=== PATIENT | female | born 1980 | race Caucasian/White ===

== ENCOUNTER 2017-03-22 15:18 | Emergency (ER) | payer OTHER ==
[2017-03-22 18:31] LABS: Hematocrit 40 % (35-47); Hemoglobin 13.8 g/dl (12.0-16.0); Mean Corpuscular HGB Conc 35 g/dl (31-36); Mean Corpuscular Hemoglobin 34 pg (27-31); Mean Corpuscular Volume 99 fL (80-97); Mean Platelet Volume 8 um3 (7.4-10.4); Red Blood Count 4.05 10^6/ul (4.0-5.4); Red Cell Distribution Width 13 % (10.5-15); White Blood Count 8.1 10^3/ul (3.5-10.8)
[2017-03-22 18:35] VITALS: BP 106/52
[2017-03-22 18:48] LABS: Albumin 3.8 g/dL (3.2-5.2); BUN/Creatinine Ratio 13.1 (8-20); Calcium 9.4 mg/dL (8.6-10.3); EGFR African American 141.9 (>60); EGFR Non-African American 110.4 (>60); Potassium 3.2 mmol/L (3.5-5.0); Total Bilirubin 0.6 mg/dL (0.2-1.0); Total Protein 6.8 g/dL (6.4-8.9)
--- NOTE | 2017-03-22 18:58 | RAD ---
INDICATION: 6 week gestation with low heart rate COMPARISON: None TECHNIQUE: Transvaginal scans were performed FINDINGS: There is an single intrauterine gestation with identification of a yolk sac and cardiac activity of 88 bpm similar to that reported previously. The crown-rump length corresponds to 6 week 2 day gestation. Both ovaries are visualized. There is a corpus luteal cyst on the right. The right ovary measures 3.9 x 2.4 x 2.2 cm and the left ovary 3.1 x 1.5 x 1.7 cm IMPRESSION: 6 WEEK 2 DAY GESTATION. THERE IS A LOW HEART RATE OF 88. SUGGEST CLINICAL MANAGEMENT AND RADIOGRAPHIC FOLLOW-UP INDICATED.
[2017-03-22 19:03] LABS: Urine Bilirubin Negative (Negative); Urine Glucose Negative (Negative); Urine Nitrite Negative (Negative)
--- NOTE | 2017-03-22 19:37 | ED ---
- HPI Summary HPI Summary: 37 female presents to ED with complaints of having a heart rate of ~ 89bpm. Patient states she was told from center to be evaluated in ED. She was just there for a routine visit after having positive at home test and missed period. No complaints at this time. No cramping, bleeding or discharge. Is not in any pain. States u/s and lmp suggest gestation is approximately 6 weeks. No other complaints at this time. No PMHx. No alcohol or drug use other than cigarette use. - History of Current Complaint Chief Complaint: EDOBProblems Stated Complaint: 6 WKS /OB PROBLEM Time Seen by Provider: 03/22/17 17:58 Hx Obtained From: Patient Chief Complaint: Concern for Demise Onset/Duration: Started Minutes Ago Current Severity: None Pain Intensity: 0 Location of Pain: None Character: None - Assessment Hx Now: Yes SAB: 0 IEA: 0 - Additional Pertinent History Maternal Blood Type and Rh: A Negative - Allergies/Home Medications Allergies/Adverse Reactions: Allergies Allergy/AdvReac Type Severity Reaction Status Date / Time Azithromycin Allergy Hives Verified 03/22/17 15:23 Latex Allergy See Comment Verified 03/22/17 15:23 Metronidazole [From MetroGel] Allergy Unknown Verified 03/22/17 15:23 Reaction Details Quinolones Allergy Hives Verified 03/22/17 15:23 PMH/Surg Hx/FS Hx/Imm Hx Endocrine/Hematology History: Reports: Hx Diabetes Denies: Hx Thyroid Disease Cardiovascular History: Denies: Hx Hypertension Respiratory History: Reports: Hx Asthma, Hx Chronic Obstructive Pulmonary Disease (COPD) - gustational dm GI History: Denies: Hx Ulcer Psychiatric History: Reports: Hx Anxiety, Hx Depression, Hx Substance Abuse - stopped using ~5 months ago - Surgical History Surgery Procedure, Year, and Place: n/a - Immunization History Immunizations Up to Date: Yes Infectious Disease History: Yes Infectious Disease History: Denies: Hx Hepatitis, Hx Human Immunodeficiency Virus (HIV), Traveled Outside the [place] in Last 30 Days - Family History Known Family History: Positive: Cardiac Disease, Diabetes - Social History Alcohol Use: None Substance Use Type: Reports: Other Substance Use Comment - Amount & Last Used: Opana, approx November 2015 Smoking Status (MU): Heavy Every Day Tobacco Smoker Type: Cigarettes Have You Smoked in the Last Year: Yes Review of Systems Constitutional: Negative Cardiovascular: Negative Respiratory: Negative Gastrointestinal: Negative Genitourinary: Negative All Other Systems Reviewed And Are Negative: Yes Physical Exam - Physical Exam Triage Information Reviewed: Yes Vital Signs On Initial Exam: temp: 98.7 HR:91 BP: 121/49 O2: 99 Resp:16 Appearance: Positive: Well-Appearing, No Pain Distress, Well-Nourished Skin: Positive: Warm, Skin Color Reflects Adequate Perfusion, Dry. Negative: Cold, Numb, Cyanosis @, Pale, Erythema @ Head/Face: Positive: Normal Head/Face Inspection Eyes: Positive: Conjunctiva Clear ENT: Positive: Normal ENT inspection, Hearing grossly normal, Pharynx normal Neck: Positive: Supple, Nontender Respiratory/Lung Sounds: Positive: Clear to Auscultation, Breath Sounds Present. Negative: Rales, Rhonchi Cardiovascular: Positive: Normal, RRR, Pulses are Symmetrical in both Upper and Lower Extremities. Negative: Murmur, Rub Abdomen Description: Positive: Nontender, No Organomegaly, Soft, Other: - genitalia normal per patient, asymptomatic deferred exam. Negative: Bruit, CVA Tenderness (R), CVA Tenderness (L), Distended, Guarding, McBurney's Point Tenderness, Peritoneal Signs Bowel Sounds: Positive: Present Musculoskeletal: Positive: Normal, Strength/ROM Intact. Negative: Pain @ Neurological: Positive: Normal, Sensory/Motor Intact, Alert, Oriented to Person Place, Time, NV Bundle Intact Distally, Normal Gait Psychiatric: Positive: Affect/Mood Appropriate Diagnostics - Vital Signs Vital Signs Temp Pulse Resp BP Pulse Ox 03/22/17 18:00 79 106/52 98 03/22/17 17:31 83 98 03/22/17 17:30 98.2 F 83 16 111/61 98 03/22/17 15:23 98.7 F 91 16 121/49 99 - Laboratory Lab Results: Lab Results 03/22/17 03/22/17 03/22/17 Range/Units 18:24 18:24 18:24 WBC 8.1 (3.5-10.8) 10^3/ul RBC 4.05 (4.0-5.4) 10^6/ul Hgb 13.8 (12.0-16.0) g/dl Hct 40 (35-47) % MCV 99 H (80-97) fL MCH 34 H (27-31) pg MCHC 35 (31-36) g/dl RDW 13 (10.5-15) % Plt Count 218 (150-450) 10^3/ul MPV 8 (7.4-10.4) um3 Neut % (Auto) 53.7 (38-83) % Lymph % (Auto) 35.2 (25-47) % [place] % (Auto) 7.7 (1-9) % Eos % (Auto) 2.2 (0-6) % Baso % (Auto) 1.2 (0-2) % Absolute Neuts (auto) 4.4 (1.5-7.7) 10^3/ul Absolute Lymphs (auto) 2.9 (1.0-4.8) 10^3/ul Absolute Monos (auto) 0.6 (0-0.8) 10^3/ul Absolute Eos (auto) 0.2 (0-0.6) 10^3/ul Absolute Basos (auto) 0.1 (0-0.2) 10^3/ul Absolute Nucleated RBC 0 10^3/ul Nucleated RBC % 0 Sodium 135 (133-145) mmol/L Potassium 3.2 L (3.5-5.0) mmol/L Chloride 105 (101-111) mmol/L Carbon Dioxide 25 (22-32) mmol/L Anion Gap 5 (2-11) mmol/L BUN 8 (6-24) mg/dL Creatinine 0.61 (0.51-0.95) mg/dL Est GFR ( Amer) 141.9 (>60) Est GFR (Non-Af Amer) 110.4 (>60) BUN/Creatinine Ratio 13.1 (8-20) Glucose 78 (70-100) mg/dL Lactic Acid 1.0 (0.5-2.0) mmol/L Calcium 9.4 (8.6-10.3) mg/dL Total Bilirubin 0.60 (0.2-1.0) mg/dL AST 45 H (13-39) U/L ALT 53 H (7-52) U/L Alkaline Phosphatase 127 H (34-104) U/L Total Protein 6.8 (6.4-8.9) g/dL Albumin 3.8 (3.2-5.2) g/dL Globulin 3.0 (2-4) g/dL Albumin/Globulin Ratio 1.3 (1-3) Beta HCG, Quant 38194.00 mIU/mL Urine Color Urine Appearance Urine pH (5-9) Ur Specific [place] (1.010-1.030) Urine Protein (Negative) Urine Ketones (Negative) Urine Blood (Negative) Urine Nitrate (Negative) Urine Bilirubin (Negative) Urine Urobilinogen (Negative) Ur Leukocyte Esterase (Negative) Urine Glucose (Negative) 03/22/17 Range/Units 18:40 WBC (3.5-10.8) 10^3/ul RBC (4.0-5.4) 10^6/ul Hgb (12.0-16.0) g/dl Hct (35-47) % MCV (80-97) fL MCH (27-31) pg MCHC (31-36) g/dl RDW (10.5-15) % Plt Count (150-450) 10^3/ul MPV (7.4-10.4) um3 Neut % (Auto) (38-83) % Lymph % (Auto) (25-47) % [place] % (Auto) (1-9) % Eos % (Auto) (0-6) % Baso % (Auto) (0-2) % Absolute Neuts (auto) (1.5-7.7) 10^3/ul Absolute Lymphs (auto) (1.0-4.8) 10^3/ul Absolute Monos (auto) (0-0.8) 10^3/ul Absolute Eos (auto) (0-0.6) 10^3/ul Absolute Basos (auto) (0-0.2) 10^3/ul Absolute Nucleated RBC 10^3/ul Nucleated RBC % Sodium (133-145) mmol/L Potassium (3.5-5.0) mmol/L Chloride (101-111) mmol/L Carbon Dioxide (22-32) mmol/L Anion Gap (2-11) mmol/L BUN (6-24) mg/dL Creatinine (0.51-0.95) mg/dL Est GFR ( Amer) (>60) Est GFR (Non-Af Amer) (>60) BUN/Creatinine Ratio (8-20) Glucose (70-100) mg/dL Lactic Acid (0.5-2.0) mmol/L Calcium (8.6-10.3) mg/dL Total Bilirubin (0.2-1.0) mg/dL AST (13-39) U/L ALT (7-52) U/L Alkaline Phosphatase (34-104) U/L Total Protein (6.4-8.9) g/dL Albumin (3.2-5.2) g/dL Globulin (2-4) g/dL Albumin/Globulin Ratio (1-3) Beta HCG, Quant mIU/mL Urine Color Yellow Urine Appearance Cloudy Urine pH 6.0 (5-9) Ur Specific [place] 1.016 (1.010-1.030) Urine Protein Negative (Negative) Urine Ketones Negative (Negative) Urine Blood Negative (Negative) Urine Nitrate Negative (Negative) Urine Bilirubin Negative (Negative) Urine Urobilinogen Positive H (Negative) Ur Leukocyte Esterase Negative (Negative) Urine Glucose Negative (Negative) Result Diagrams: 03/22/17 18:24 03/22/17 18:24 Lab Statement: Any lab studies that have been ordered have been reviewed, and results considered in the medical decision making process. - Ultrasound No standard instances Ultrasound Interpretation: Positive (See Comments) - 6 week 2 day gestation. there is a low heart rate of 88. suggest clinical management and radiographic follow up as indicated. Ultrasound Interpretation Completed By: Radiologist Course/Dx - Course Course Of Treatment: obtained another transvaginal US showing HR to be 88bpm. Labs/HCG obtained. Urine obtained and negative. no other complaints at this time. no symptoms of discharge, bleeding or abdominal pain/cramping. unable to prevent/treat at this time. However was suggested that miscarriage is possible. Unable and too early to tell. Follow up with OBGYN. Spoke with Dr Polanco at 7:30pm who agrees that follow up and repeat US/ HCG. Patient agrees and understands. Aware of worsening signs and symptoms to watch out for. Given vitamins and suggested to stop smoking. - Differential Diagnosis/HQI/PQRI: Incomplete , Missed , Spontaneous , Threatened , Early , UTI, Vaginal Bleeding - Diagnoses Provider Diagnoses: Abnormal heart rate - Provider Notifications Discussed Care Of Patient With: Dr Polanco Time Discussed With Above Provider: 19:30 Instructed by Provider To: Have Pt Call For Appt. Discharge - Discharge Plan Condition: Stable Disposition: HOME Prescriptions: RX: Vitamin [Calna] 1 tab PO DAILY #30 tab Patient Education Materials: (ED) Referrals: Hank JOHNSTON,Luciana Murrieta [Primary Care Provider] - Jason Polanco MD [Medical Doctor] - Additional Instructions: Please call and make an appointment to see OBGYN next week for repeat labs and U /S. If you have any new or worsening symptoms (vaginal bleeding/pain) please seek medical attention promptly.
== END 2017-03-22 19:43 | disposition home or self-care (01) ==
LOC: ED 15:18
DX: O76 Abnormality in fetal heart rate and rhythm complicating labor and delivery (principal); Z3A.01 Less than 8 weeks gestation of pregnancy; O24.911 Unspecified diabetes mellitus in pregnancy, first trimester; O99.331 Smoking (tobacco) complicating pregnancy, first trimester; F17.210 Nicotine dependence, cigarettes, uncomplicated
CPT/HCPCS: 36415; 76817; 80053; 81003; 83605; 84702; 85025; 86703; 99283

== ENCOUNTER 2017-06-20 14:40 | Emergency (ER) | payer OTHER ==
[2017-06-20 15:02] VITALS: BP 113/61
[2017-06-20] MEDS ORDERED: GuaiFENesin DM* 5 ML UDC PO ONE (15:22)
[2017-06-20] MEDS ORDERED: Acetaminophen TAB* 325 MG PO ONE (15:23)
[2017-06-20] MEDS ORDERED: guaiFENesin LIQ* 100 MG/5 ML UDC PO ONE (15:26)
--- NOTE | 2017-06-20 15:29 | UC ---
Respiratory Complaint HPI - HPI Summary HPI Summary: 37 year old female with history of hep C, PSA here with fever, chills and cough for over one month. Patient still smoking 1/2 PPD. Reports productive cough but denies cp or sob. No n/v/d. Patient also reports IVDU over her hands the past few days. No other complaints. - History of Current Complaint Chief Complaint: UCGeneralIllness Stated Complaint: URI Time Seen by Provider: 06/20/17 15:13 Hx Obtained From: Patient Hx Last Menstrual Period: this month Onset/Duration: Lasting Weeks Timing: Constant Aggravating Factors: Allergens Associated Signs And Symptoms: Positive: Fever, Chills - Allergies/Home Medications Allergies/Adverse Reactions: Allergies Allergy/AdvReac Type Severity Reaction Status Date / Time Azithromycin Allergy Hives Verified 06/20/17 15:03 Latex Allergy See Comment Verified 06/20/17 15:03 Metronidazole [From MetroGel] Allergy Unknown Verified 06/20/17 15:03 Reaction Details Quinolones Allergy Hives Verified 06/20/17 15:03 PMH/Surg Hx/FS Hx/Imm Hx - Surgical History Surgical History: None Surgery Procedure, Year, and Place: n/a - Family History Known Family History: Positive: Cardiac Disease, Diabetes - Social History Alcohol Use: None Substance Use Type: Other Substance Use Comment - Amount & Last Used: opiates Smoking Status (MU): Heavy Every Day Tobacco Smoker Type: Cigarettes Have You Smoked in the Last Year: Yes - Immunization History Most Recent Influenza Vaccination: 04/07/16 Most Recent Tetanus Shot: 03/11/16 Most Recent Pneumonia Vaccination: not indicated Review of Systems Constitutional: Fever, Chills Respiratory: Cough Genitourinary: Negative All Other Systems Reviewed And Are Negative: No Physical Exam Triage Information Reviewed: Yes Appearance: Other: - unkempt Vital Signs: Initial Vital Signs Temp 36.8 C 06/20/17 14:58 Pulse 105 06/20/17 14:58 Resp 21 06/20/17 14:58 BP 113/61 06/20/17 14:58 Pulse Ox 99 06/20/17 14:58 Vital Signs Reviewed: Yes ENT: Positive: Pharyngeal erythema, Nasal congestion Neck exam: Normal Neck: Positive: Supple, Nontender, No Lymphadenopathy Respiratory: Positive: Chest non-tender, Lungs clear, Normal breath sounds, No respiratory distress Abdomen Description: Positive: Nontender, No Organomegaly Musculoskeletal: Positive: Other: - bilateral arms and hands with track valencia No erythema no fluctuance Neurological: Positive: Alert UC Diagnostic Evaluation - Laboratory O2 Sat by Pulse Oximetry: 99 Respiratory Course/Dx - Course Course Of Treatment: Cough. Most likely bronchitis given history. CXR. Reassess - Differential Dx/Diagnosis Differential Diagnosis/HQI/PQRI: Lower Resp Infection, Sinusitis Provider Diagnoses: Patient's XR negative. Cough meds rx. Discharge - Discharge Plan Condition: Good Disposition: HOME Prescriptions: Benzonatate CAP* [Tessalon 100 MG CAP*] 100 mg PO TID PRN #15 cap PRN Reason: Cough Patient Education Materials: Cold Symptoms (ED) Referrals: No Primary Care Phys,NOPCP [Primary Care Provider] - Additional Instructions: Stop smoking and using IV drugs. This can worsen your symptoms. Follow up with your doctor and seek help for rehab.
--- NOTE | 2017-06-20 16:25 | RAD ---
INDICATION: Cough. COMPARISON: There are no prior studies available for comparison. TECHNIQUE: Dual-energy PA and lateral views of the chest were obtained. FINDINGS: The heart is within normal limits in size. Mediastinal and hilar contours appear within normal limits. The lungs are clear. No pleural effusion is present. There is a mild to moderate dorsal scoliosis convex toward the right side. IMPRESSION: NO EVIDENCE FOR ACTIVE CARDIOPULMONARY DISEASE.
== END 2017-06-20 16:50 | disposition home or self-care (01) ==
LOC: UCEAST 14:40
DX: R05 Cough (principal); Z32.02 Encounter for pregnancy test, result negative; Z88.1 Allergy status to other antibiotic agents; F17.210 Nicotine dependence, cigarettes, uncomplicated
CPT/HCPCS: 71020; 81003; 84702; 99212; A9270-GY; G0463

== ENCOUNTER 2018-05-01 18:27 | Emergency (ER) | payer OTHER ==
[2018-05-01 19:20] VITALS: BP 109/73
--- NOTE | 2018-05-01 20:09 | UC ---
Respiratory Complaint HPI - HPI Summary HPI Summary: 38-year-old female presents with 8 week history of persistent URIs symptoms and occasionally productive cough for yellow sputum. States she was prescribed a course of azithromycin and another antibiotic which she can't recall without any improvement in her symptoms. Associated with nasal congestion, postnasal drip, intermittent mild sore throat, and shortness of breath.. The patient is a smoker. She denies asthma however does have an albuterol inhaler that she occasionally uses for shortness of breath. States she is currently out of her inhaler and has not used. Denies fever, chills, chest pain, abdominal pain, nausea, or vomiting. - History of Current Complaint Chief Complaint: UCGeneralIllness Stated Complaint: COUGH,CONGESTION,ST Time Seen by Provider: 05/01/18 19:05 Hx Obtained From: Patient Hx Last Menstrual Period: unknown ?: No Onset/Duration: Lasting Weeks - 8 Pain Intensity: 3 Aggravating Factors: Deep Breaths Alleviating Factors: Nothing Associated Signs And Symptoms: Positive: Dyspnea, URI, Nasal Congestion, Hoarseness. Negative: Fever, Chills, Pleuritic Chest Pain, Wheezing, Hemoptysis , Sinus Discomfort - Allergies/Home Medications Allergies/Adverse Reactions: Allergies Allergy/AdvReac Type Severity Reaction Status Date / Time Latex, Natural Rubber Allergy Hives Verified 05/01/18 19:02 metronidazole Allergy Unknown Verified 05/01/18 19:02 Reaction Details Quinolones Allergy Anaphylatic Verified 05/01/18 19:02 Shock Home Medications: Home Medications Buprenorphine HCl/Naloxone HCl [Suboxone 12 mg-3 mg Sl Film] 1 tab SL BID [History Confirmed 05/01/18] PMH/Surg Hx/FS Hx/Imm Hx Other Psychological History: Substance abuse disorder - Surgical History Surgical History: Yes Surgery Procedure, Year, and Place: LEAP procedure - Family History Known Family History: Positive: Cardiac Disease, Diabetes - Social History Occupation: Unemployed Lives: With Family Alcohol Use: None Substance Use Type: Prescribed Substance Use Comment - Amount & Last Used: Suboxone Smoking Status (MU): Heavy Every Day Tobacco Smoker Type: Cigarettes Amount Used/How Often: 1ppd Have You Smoked in the Last Year: Yes Household Exposure Type: Cigarettes - Immunization History Most Recent Influenza Vaccination: 04/07/16 Most Recent Tetanus Shot: 9/2/16 Most Recent Pneumonia Vaccination: not indicated Review of Systems Constitutional: Negative Skin: Negative Eyes: Negative ENT: Sore Throat, Nasal Discharge Respiratory: Shortness Of Breath, Cough Cardiovascular: Negative Gastrointestinal: Negative Is Patient Immunocompromised?: No All Other Systems Reviewed And Are Negative: Yes Physical Exam Triage Information Reviewed: Yes Appearance: No Pain Distress, Well-Nourished, Ill-Appearing - Chronically Vital Signs: Initial Vital Signs Temp 98.3 F 05/01/18 19:03 Pulse 82 05/01/18 19:03 Resp 22 05/01/18 19:03 BP 109/73 05/01/18 19:03 Pulse Ox 97 05/01/18 19:03 Vital Signs Reviewed: Yes Eyes: Positive: Conjunctiva Clear. Negative: Discharge ENT: Positive: Hearing grossly normal, Pharyngeal erythema - Mild with cobblestoning, Nasal congestion, TMs normal, Uvula midline. Negative: Nasal drainage, Tonsillar swelling, Tonsillar exudate, Sinus tenderness Neck: Positive: Supple, Nontender, No Lymphadenopathy Respiratory: Positive: No respiratory distress, Decreased breath sounds. Negative: Crackles, Rhonchi, Wheezing Cardiovascular: Positive: RRR, No Murmur Neurological: Positive: Alert Skin Exam: Normal UC Diagnostic Evaluation - Laboratory O2 Sat by Pulse Oximetry: 97 - Radiology Radiology Interpretation Completed By: ED Physician Summary of Radiographic Findings: No acute cardiopulmonary disease Respiratory Course/Dx - Course Course Of Treatment: 38 year old female with 2 month history of persistent URI symptoms with cough. She has been evalauted and treated with course of azithromycin and doxycycline. Exam consistent with URI. CXR normal. I suspect that she has some underlying reactive airway disease considering her smoking history. Will treat with course of prednisone and albuterol PRN. With her recent antibiotic use would ideally treat with course of levofloxacin however with her reported allergy to quinolones will cover with Augmentin. She is to follow up with PCP in 5 days for recheck. Warning symptoms reviewed with patient. Verbalizes understanding and agrees with POC. - Differential Dx/Diagnosis Differential Diagnosis/HQI/PQRI: Bronchitis, Lower Resp Infection, Sinusitis Provider Diagnoses: Bronchitis, Reactive airway disease no asthma Discharge - Sign-Out/Discharge Documenting (check all that apply): Patient Departure All imaging exams completed and their final reports reviewed: No - Discharge Plan Condition: Stable Disposition: HOME Prescriptions: Albuterol HFA INHALER* [Ventolin HFA Inhaler*] 2 puff INH Q4H PRN #1 mdi PRN Reason: Sob/Wheezing Amoxicillin/Clavulanate TAB* [Augmentin TAB 875*] 875 mg PO BID #20 tab predniSONE [Prednisone 20 MG TAB] 40 mg PO DAILY #10 tablet Patient Education Materials: Acute Bronchitis (ED), Wheezing (ED) Referrals: Astrid Ann MD [Primary Care Provider] - 5 Days (For recheck) Additional Instructions: The chest x-ray performed in the clinic today was normal. I suspect that your symptoms are from an acute bronchitis causing inflammation of your airways that is called reactive airway disease. Start Augmentin 1 tab twice daily for 10 days. Take with food to avoid upset stomach. Be sure to finish the entire course. Take prednisone 40 mg once daily for 5 days to help reduce the inflammation in your airways. Use your albuterol inhaler 2 puffs every 4-6 hours as needed for any shortness of breath, wheezing, or coughing fits. I would recommend that he stop smoking as this will worsen her symptoms. Follow-up with your primary care provider and 5 days to be rechecked. Seek immediate medical attention if you have fever greater than 100.5 F, chest pain, worsening shortness of breath, feel weak or dizzy, or any worsening of symptoms. - Billing Disposition and Condition Condition: STABLE Disposition: Home
--- NOTE | 2018-05-02 07:30 | RAD ---
INDICATION: Cough. COMPARISON: Comparison is made to prior chest x-ray study from June 20, 2017. TECHNIQUE: Dual-energy PA and lateral views of the chest were obtained. FINDINGS: The heart is within normal limits in size. Mediastinal and hilar contours appear within normal limits. The lungs are clear. No pleural effusion is present. IMPRESSION: NO EVIDENCE FOR ACTIVE CARDIOPULMONARY DISEASE. R0
--- NOTE | 2018-05-02 08:13 | UC ---
- EKG/XRAY/CT XRAY: chest - wet read correct Discharge - Sign-Out/Discharge Documenting (check all that apply): Post-Discharge Follow Up All imaging exams completed and their final reports reviewed: Yes - Discharge Plan Condition: Stable Disposition: HOME Prescriptions: Albuterol HFA INHALER* [Ventolin HFA Inhaler*] 2 puff INH Q4H PRN #1 mdi PRN Reason: Sob/Wheezing Amoxicillin/Clavulanate TAB* [Augmentin TAB 875*] 875 mg PO BID #20 tab predniSONE [Prednisone 20 MG TAB] 40 mg PO DAILY #10 tablet Patient Education Materials: Acute Bronchitis (ED), Wheezing (ED) Referrals: Astrid Ann MD [Primary Care Provider] - 5 Days (For recheck) Additional Instructions: The chest x-ray performed in the clinic today was normal. I suspect that your symptoms are from an acute bronchitis causing inflammation of your airways that is called reactive airway disease. Start Augmentin 1 tab twice daily for 10 days. Take with food to avoid upset stomach. Be sure to finish the entire course. Take prednisone 40 mg once daily for 5 days to help reduce the inflammation in your airways. Use your albuterol inhaler 2 puffs every 4-6 hours as needed for any shortness of breath, wheezing, or coughing fits. I would recommend that he stop smoking as this will worsen her symptoms. Follow-up with your primary care provider and 5 days to be rechecked. Seek immediate medical attention if you have fever greater than 100.5 F, chest pain, worsening shortness of breath, feel weak or dizzy, or any worsening of symptoms. - Billing Disposition and Condition Condition: STABLE Disposition: Home
--- NOTE | 2018-05-03 19:07 | UC ---
- Progress Note Progress Note: Patient Name: JOSE FIERRO Medical Record#: [id number] Ordering Physician: Cameron Caicedo NP Acct.#: [id number] : 1980 Age: 38 Sex: F Location: [facility] Exam Date: 05/01/181939 ADM Status: DEP ER Order Information: CHEST PA & LAT 2 VWS Accession Number: [id number] CPT: 60880 INDICATION: Cough. COMPARISON: Comparison is made to prior chest x-ray study from June 20, 2017. TECHNIQUE: Dual-energy PA and lateral views of the chest were obtained. FINDINGS: The heart is within normal limits in size. Mediastinal and hilar contours appear within normal limits. The lungs are clear. No pleural effusion is present. IMPRESSION: NO EVIDENCE FOR ACTIVE CARDIOPULMONARY DISEASE. R0 <Electronically signed by Abdifatah Brown MD in OV> 05/02/18725 Dictated By: Abdifatah Brown MD Dictated Date/Time: 05/02/18725 Transcribed Date/Time: 05/02/18724 Copy to: CC:Cameron Caicedo NP; Astrid Ann MD; Laith Campbell MD Imaging - [facility] Imaging - [facility] [address] [address] ph ([phone]) ph ([phone]) ph ([phone]) This report is only to be considered final once signed by the Provider(s) as displayed in the "<Electronically Signed by >" field (s). Absence of a signature indicates the report is in a draft status and still needs to be finalized. In the event this document was created by someone other than the signing Provider, the individual initiating the document will be listed in the "Entered by:" or "Dictated by:" martínez. 1 of 1 - EKG/XRAY/CT XRAY: chest - wet read correct Discharge - Sign-Out/Discharge Documenting (check all that apply): Post-Discharge Follow Up All imaging exams completed and their final reports reviewed: Yes - Discharge Plan Condition: Stable Disposition: HOME Prescriptions: Albuterol HFA INHALER* [Ventolin HFA Inhaler*] 2 puff INH Q4H PRN #1 mdi PRN Reason: Sob/Wheezing Amoxicillin/Clavulanate TAB* [Augmentin TAB 875*] 875 mg PO BID #20 tab predniSONE [Prednisone 20 MG TAB] 40 mg PO DAILY #10 tablet Patient Education Materials: Acute Bronchitis (ED), Wheezing (ED) Referrals: Astrid Ann MD [Primary Care Provider] - 5 Days (For recheck) Additional Instructions: The chest x-ray performed in the clinic today was normal. I suspect that your symptoms are from an acute bronchitis causing inflammation of your airways that is called reactive airway disease. Start Augmentin 1 tab twice daily for 10 days. Take with food to avoid upset stomach. Be sure to finish the entire course. Take prednisone 40 mg once daily for 5 days to help reduce the inflammation in your airways. Use your albuterol inhaler 2 puffs every 4-6 hours as needed for any shortness of breath, wheezing, or coughing fits. I would recommend that he stop smoking as this will worsen her symptoms. Follow-up with your primary care provider and 5 days to be rechecked. Seek immediate medical attention if you have fever greater than 100.5 F, chest pain, worsening shortness of breath, feel weak or dizzy, or any worsening of symptoms. - Billing Disposition and Condition Condition: STABLE Disposition: Home
== END 2018-05-01 20:00 | disposition home or self-care (01) ==
LOC: UCEAST 18:27
DX: J40 Bronchitis, not specified as acute or chronic (principal); J98.8 Other specified respiratory disorders; F17.210 Nicotine dependence, cigarettes, uncomplicated; Z88.8 Allergy status to other drugs, medicaments and biological substances; Z91.040 Latex allergy status
CPT/HCPCS: 71046; 99212; G0463

== ENCOUNTER 2020-07-13 16:31 | Inpatient (IN) ==
[2020-07-13 18:32] LABS: Urine Appearance Cloudy; Urine Bilirubin Negative (Negative); Urine Blood Negative (Negative); Urine Color Yellow; Urine Glucose Negative (Negative); Urine Ketones Negative (Negative); Urine Nitrite Negative (Negative); Urine Protein Negative (Negative); Urine Specific Gravity 1.016 (1.010-1.030); Urine Urobilinogen Negative (Negative)
[2020-07-13 18:36] LABS: ABS Eosinophils 0.2 10^3/ul (0-0.6); ABS Lymphocytes 2.2 10^3/ul (1.0-4.8); ABS Monocytes 0.6 10^3/ul (0-0.8); ABS Neutrophils 5.2 10^3/ul (1.5-7.7); Hematocrit 42 % (35-47); Hemoglobin 14.3 g/dL (12.0-16.0); Lymphocyte % 27.2 %; Mean Corpuscular HGB Conc 35 g/dL (31-36); Mean Corpuscular Hemoglobin 33 pg (27-31); Mean Corpuscular Volume 95 fL (80-97); Mean Platelet Volume 7.1 fL (7.4-10.4); Platelet Count 306 10^3/uL (150-450); Red Blood Count 4.36 10^6 /uL (3.70-4.87); Red Cell Distribution Width 12 % (10-15); White Blood Count 8.3 10^3/uL (3.5-10.8)
[2020-07-13 18:43] LABS: Urine Benzodiazepine Screen None Detected (None Detect); Urine Cannabinoids Screen Presumptive Positive (None Detect); Urine Opiates Screen None Detected (None Detect)
[2020-07-13 18:53] LABS: ALT 11 U/L (7-52); AST 15 U/L (13-39); Albumin 3.9 g/dL (3.2-5.2); Albumin/Globulin Ratio 1.4 (1-3); Alkaline Phosphatase 104 U/L (34-104); Anion Gap 4 mmol/L (2-11); BUN/Creatinine Ratio 14.5 (8-20); Blood Urea Nitrogen 8 mg/dL (6-24); CO2 Carbon Dioxide 29 mmol/L (22-32); Calcium 8.6 mg/dL (8.6-10.3); Chloride 103 mmol/L (101-111); EGFR African American 148.1 (>60); EGFR Non-African American 122.4 (>60); Globulin 2.8 g/dL (2-4); Glucose 115 mg/dL (70-100); Potassium 3.5 mmol/L (3.5-5.0); Sodium 136 mmol/L (135-145); Total Protein 6.7 g/dL (6.4-8.9)
[2020-07-13 18:59] LABS: HCG Pregnancy 0.64 mIU/mL
[2020-07-13 19:22] LABS: Acetaminophen < 15 mcg/mL; Alcohol, S < 10 mg/dL (<10); Salicylate < 2.50 mg/dL (<30)
[2020-07-13 19:37] LABS: TSH Ultra Thyroid Stim Horm 1.02 mcIU/mL (0.34-5.60)
[2020-07-14] MEDS ORDERED: Al Hydrox/Mg Hydrox/Simet LIQ 30 ML UDC PO PRN (02:15)
[2020-07-14] MEDS ORDERED: Nicotine GUM 2MG FRUIT FLAVOR PO PRN (03:00)
[2020-07-14] MEDS: Nicotine PATCH 21 MG/24 HR PATCH TRANSDERM SCH (10:15)
[2020-07-14] MEDS: Vitamin THERAPEUTIC TAB PO SCH (10:15)
[2020-07-14] MEDS: Buprenorp/Nalox 4-1 MG FILM SL FILM SCH (20:08)
[2020-07-15] MEDS: Vitamin THERAPEUTIC TAB PO SCH (08:22)
[2020-07-15] MEDS: Buprenorp/Nalox 4-1 MG FILM SL FILM SCH (08:25)
[2020-07-15] MEDS: Nicotine PATCH 21 MG/24 HR PATCH TRANSDERM SCH (08:25)
[2020-07-15 08:51] VITALS: BP 127/79
== END 2020-07-15 12:00 | disposition home or self-care (01) | DRG 773 ==
LOC: ED 16:31 → BSU 23:32
PROVIDERS: ADMIT Psychiatry & Neurology Psychiatry; ATTEND Psychiatry & Neurology Psychiatry

== ENCOUNTER 2020-09-06 17:52 | Inpatient (IN) ==
[2020-09-06] MEDS ORDERED: LORazepam 2 mg VIAL 1 ml IM ONE (19:07)
[2020-09-06] MEDS ORDERED: Haloperidol 5 mg/ml SDV IV/IM 5 MG/ML AMP IM ONE (19:07)
[2020-09-06] MEDS ORDERED: diPHENhydraMINE IV 50 MG/ML 1 ml VIAL (BENADRYL) IM ONE (19:07)
[2020-09-06] MEDS ORDERED: Lorazepam PYXIS KEY ONE (20:01)
[2020-09-07] MEDS: Vitamin THERAPEUTIC TAB PO SCH (09:00)
[2020-09-08] MEDS: Vitamin THERAPEUTIC TAB PO SCH (11:18)
[2020-09-08] MEDS: risperiDONE-M 1 mg Oradis TAB PO SCH (20:52)
[2020-09-09 08:57] LABS: HDL Cholesterol 26.5 mg/dL
[2020-09-09] MEDS: Vitamin THERAPEUTIC TAB PO SCH (10:33)
[2020-09-09] MEDS: risperiDONE-M 1 mg Oradis TAB PO PRN ×3 (11:29→18:22)
[2020-09-09] MEDS ORDERED: risperiDONE-M 1 mg Oradis TAB PO ONE (12:00)
[2020-09-09] MEDS ORDERED: risperiDONE-M 1 mg Oradis TAB ONE (12:00)
[2020-09-10] MEDS: risperiDONE-M 1 mg Oradis TAB PO SCH ×2 (04:47→20:15)
[2020-09-10] MEDS: Vitamin THERAPEUTIC TAB PO SCH (10:49)
[2020-09-11] MEDS: Vitamin THERAPEUTIC TAB PO SCH (09:43)
[2020-09-11] MEDS: risperiDONE-M 1 mg Oradis TAB PO SCH (21:20)
[2020-09-12] MEDS: Vitamin THERAPEUTIC TAB PO SCH (08:33)
[2020-09-12] MEDS: risperiDONE-M 1 mg Oradis TAB PO SCH (19:59)
[2020-09-12] MEDS: Albuterol HFA INHALER 8 gm MDI INH PRN (20:49)
[2020-09-13] MEDS: Vitamin THERAPEUTIC TAB PO SCH (07:44)
[2020-09-13] MEDS: Albuterol HFA INHALER 8 gm MDI INH PRN (08:53)
[2020-09-13] MEDS: risperiDONE-M 1 mg Oradis TAB PO SCH (20:30)
[2020-09-14] MEDS: Vitamin THERAPEUTIC TAB PO SCH (08:42)
[2020-09-14] MEDS ORDERED: Paliperidone SUSTENNA 234 MG/1.5 ML IM ONE (10:44)
[2020-09-14] MEDS: risperiDONE-M 1 mg Oradis TAB PO SCH (19:59)
[2020-09-14] MEDS: Al Hydrox/Mg Hydrox/Simet LIQ 30 ML UDC PO PRN (20:00)
[2020-09-15] MEDS: Vitamin THERAPEUTIC TAB PO SCH (07:15)
[2020-09-15 20:01] LABS: Urine Benzodiazepine Screen None Detected (None Detect); Urine Cannabinoids Screen None Detected (None Detect); Urine Opiates Screen None Detected (None Detect)
[2020-09-15] MEDS: risperiDONE-M 1 mg Oradis TAB PO SCH (23:50)
[2020-09-16] MEDS: Vitamin THERAPEUTIC TAB PO SCH ×2 (08:24→09:08)
[2020-09-16] MEDS: Al Hydrox/Mg Hydrox/Simet LIQ 30 ML UDC PO PRN (19:16)
[2020-09-16] MEDS: risperiDONE-M 1 mg Oradis TAB PO SCH (20:48)
[2020-09-17] MEDS: Vitamin THERAPEUTIC TAB PO SCH (08:54)
[2020-09-17] MEDS: Al Hydrox/Mg Hydrox/Simet LIQ 30 ML UDC PO PRN (17:16)
[2020-09-17] MEDS: risperiDONE-M 1 mg Oradis TAB PO SCH (19:43)
[2020-09-17] MEDS: Nicotine GUM 4MG FRUIT FLAVOR PO PRN (21:19)
[2020-09-18] MEDS: Nicotine PATCH 21 MG/24 HR PATCH TRANSDERM SCH (07:25)
[2020-09-18] MEDS: Vitamin THERAPEUTIC TAB PO SCH (07:25)
[2020-09-18] MEDS: Nicotine GUM 4MG FRUIT FLAVOR PO PRN ×5 (07:28→20:31)
[2020-09-18] MEDS ORDERED: Paliperidone SUSTENNA 156 MG/1 ML IM ONE (12:00)
[2020-09-18] MEDS: Calcium Carb (TUMS) 500 mg CHEW TAB PO PRN (14:16)
[2020-09-18] MEDS: risperiDONE-M 1 mg Oradis TAB PO SCH (20:09)
[2020-09-19] MEDS: Vitamin THERAPEUTIC TAB PO SCH (07:52)
[2020-09-19] MEDS: Nicotine PATCH 21 MG/24 HR PATCH TRANSDERM SCH (07:54)
[2020-09-19] MEDS: Nicotine GUM 4MG FRUIT FLAVOR PO PRN ×3 (07:55→16:38)
[2020-09-19] MEDS: risperiDONE-M 1 mg Oradis TAB PO SCH (22:01)
[2020-09-20] MEDS: Nicotine GUM 4MG FRUIT FLAVOR PO PRN ×6 (06:41→20:42)
[2020-09-20] MEDS: Nicotine PATCH 21 MG/24 HR PATCH TRANSDERM SCH (09:05)
[2020-09-20] MEDS: Vitamin THERAPEUTIC TAB PO SCH (09:06)
[2020-09-20] MEDS: risperiDONE-M 1 mg Oradis TAB PO SCH (20:39)
[2020-09-20] MEDS: Calcium Carb (TUMS) 500 mg CHEW TAB PO PRN (22:33)
[2020-09-21] MEDS: Nicotine GUM 4MG FRUIT FLAVOR PO PRN ×3 (08:29→18:41)
[2020-09-21] MEDS: Nicotine PATCH 21 MG/24 HR PATCH TRANSDERM SCH (08:29)
[2020-09-21] MEDS: Vitamin THERAPEUTIC TAB PO SCH (08:29)
[2020-09-21] MEDS: Al Hydrox/Mg Hydrox/Simet LIQ 30 ML UDC PO PRN (09:50)
[2020-09-21] MEDS ORDERED: Lorazepam PYXIS KEY PRN (11:41)
[2020-09-21] MEDS ORDERED: LORazepam 2 mg VIAL 1 ml IM ONE (11:41)
[2020-09-21] MEDS ORDERED: Haloperidol 5 mg/ml SDV IV/IM 5 MG/ML AMP IM ONE (11:41)
[2020-09-22] MEDS: Nicotine GUM 4MG FRUIT FLAVOR PO PRN ×3 (07:00→17:56)
[2020-09-22] MEDS: Vitamin THERAPEUTIC TAB PO SCH (10:50)
[2020-09-22] MEDS: Nicotine PATCH 21 MG/24 HR PATCH TRANSDERM SCH (10:50)
[2020-09-23] MEDS: Nicotine GUM 4MG FRUIT FLAVOR PO PRN ×2 (06:03→09:41)
[2020-09-23] MEDS: Nicotine PATCH 21 MG/24 HR PATCH TRANSDERM SCH (09:21)
[2020-09-23] MEDS: Vitamin THERAPEUTIC TAB PO SCH (09:23)
[2020-09-23 11:43] LABS: AST 763 U/L (13-39); Albumin 3.6 g/dL (3.2-5.2); Albumin/Globulin Ratio 0.9 (1-3); Alkaline Phosphatase 225 U/L (34-104); Anion Gap 5 mmol/L (2-11); BUN/Creatinine Ratio 28.3 (8-20); Blood Urea Nitrogen 15 mg/dL (6-24); CO2 Carbon Dioxide 29 mmol/L (22-32); Calcium 9.1 mg/dL (8.6-10.3); Chloride 100 mmol/L (101-111); EGFR African American 154.6 (>60); EGFR Non-African American 127.8 (>60); Globulin 3.9 g/dL (2-4); Glucose 80 mg/dL (70-100); Potassium 4.4 mmol/L (3.5-5.0); Sodium 134 mmol/L (135-145); Total Protein 7.5 g/dL (6.4-8.9)
[2020-09-23 11:51] LABS: Hematocrit 37 % (35-47); Hemoglobin 12.7 g/dL (12.0-16.0); Mean Corpuscular HGB Conc 34 g/dL (31-36); Mean Corpuscular Hemoglobin 32 pg (27-31); Mean Corpuscular Volume 93 fL (80-97); Mean Platelet Volume 8.3 fL (7.4-10.4); Platelet Count 225 10^3/uL (150-450); Red Blood Count 3.98 10^6 /uL (3.70-4.87); Red Cell Distribution Width 17 % (10-15); White Blood Count 5.1 10^3/uL (3.5-10.8)
[2020-09-23 12:28] LABS: ABS Basophils 0.1 10^3/ul (0-0.2); ABS Eosinophils 0.2 10^3/ul (0-0.6); ABS Lymphocytes 2.1 10^3/ul (1.0-4.8); ABS Monocytes 0.8 10^3/ul (0-0.8); ABS Neutrophils 2.1 10^3/ul (1.5-7.7); Eosinophil % 3.4 %; Lymphocyte % 39.5 %; Nucleated Red Blood Cells % 0.1
[2020-09-23 12:41] LABS: ALT 1609 U/L (7-52)
[2020-09-23 13:56] LABS: HCG Pregnancy < 0.60 mIU/mL
[2020-09-23 15:22] LABS: Hepatitis A Ab IgM Reactive (Negative)
[2020-09-23 15:23] LABS: Hepatitis B Core IgM Nonreactive (Nonreactive)
[2020-09-23 15:48] LABS: Hepatitis C Antibody Reactive (Negative)
[2020-09-23] MEDS: Sulfamethox/Trimethoprim DS TAB 800/160 mg PO SCH (22:28)
[2020-09-24] MEDS: Nicotine GUM 4MG FRUIT FLAVOR PO PRN ×4 (06:41→17:55)
[2020-09-24] MEDS: Vitamin THERAPEUTIC TAB PO SCH (08:40)
[2020-09-24] MEDS: Nicotine PATCH 21 MG/24 HR PATCH TRANSDERM SCH (08:40)
[2020-09-24] MEDS: Sulfamethox/Trimethoprim DS TAB 800/160 mg PO SCH (10:45)
[2020-09-24] MEDS: Calcium Carb (TUMS) 500 mg CHEW TAB PO PRN (15:28)
[2020-09-25] MEDS: Nicotine GUM 4MG FRUIT FLAVOR PO PRN ×3 (07:21→15:15)
[2020-09-25] MEDS: Vitamin THERAPEUTIC TAB PO SCH (09:22)
[2020-09-25] MEDS: Nicotine PATCH 21 MG/24 HR PATCH TRANSDERM SCH (09:22)
[2020-09-25 13:34] LABS: HIV 4th Generation Nonreactive (Nonreactive)
[2020-09-26] MEDS: Nicotine GUM 4MG FRUIT FLAVOR PO PRN ×5 (06:15→20:36)
[2020-09-26] MEDS: Nicotine PATCH 21 MG/24 HR PATCH TRANSDERM SCH (08:14)
[2020-09-26] MEDS: Vitamin THERAPEUTIC TAB PO SCH (08:14)
[2020-09-26] MEDS: Albuterol HFA INHALER 8 gm MDI INH PRN (16:47)
[2020-09-27] MEDS: Nicotine GUM 4MG FRUIT FLAVOR PO PRN ×5 (02:13→19:21)
[2020-09-27] MEDS: Vitamin THERAPEUTIC TAB PO SCH (07:26)
[2020-09-27] MEDS: Nicotine PATCH 21 MG/24 HR PATCH TRANSDERM SCH (07:26)
[2020-09-27] MEDS: Albuterol HFA INHALER 8 gm MDI INH PRN (08:43)
[2020-09-28] MEDS: Nicotine GUM 4MG FRUIT FLAVOR PO PRN ×5 (05:46→20:40)
[2020-09-28] MEDS: Nicotine PATCH 21 MG/24 HR PATCH TRANSDERM SCH (09:18)
[2020-09-28] MEDS: Vitamin THERAPEUTIC TAB PO SCH (09:19)
[2020-09-28 17:51] LABS: Albumin 3.5 g/dL (3.2-5.2); Albumin/Globulin Ratio 0.8 (1-3); BUN/Creatinine Ratio 25.9 (8-20); Calcium 9.3 mg/dL (8.6-10.3); EGFR African American 139.3 (>60); EGFR Non-African American 115.1 (>60); Globulin 4.3 g/dL (2-4); Total Protein 7.8 g/dL (6.4-8.9)
[2020-09-29] MEDS: Nicotine GUM 4MG FRUIT FLAVOR PO PRN ×6 (03:29→21:55)
[2020-09-29] MEDS: Vitamin THERAPEUTIC TAB PO SCH (08:32)
[2020-09-29] MEDS: Nicotine PATCH 21 MG/24 HR PATCH TRANSDERM SCH (08:33)
[2020-09-29 13:34] LABS: Albumin 3.6 g/dL (3.2-5.2); CO2 Carbon Dioxide 24 mmol/L (22-32); Calcium 8.9 mg/dL (8.6-10.3); Chloride 101 mmol/L (101-111); Sodium 132 mmol/L (135-145)
[2020-09-29 13:40] LABS: Albumin/Globulin Ratio 0.9 (1-3); Alkaline Phosphatase 206 U/L (34-104); BUN/Creatinine Ratio 32.7 (8-20); Blood Urea Nitrogen 16 mg/dL (6-24); EGFR African American 169.2 (>60); EGFR Non-African American 139.9 (>60); Glucose 106 mg/dL (70-100); Total Protein 7.6 g/dL (6.4-8.9)
[2020-09-29 14:50] LABS: Anion Gap 7 mmol/L (2-11)
[2020-09-29 15:46] LABS: ALT 1572 U/L (7-52)
[2020-09-30] MEDS: Nicotine GUM 4MG FRUIT FLAVOR PO PRN ×7 (04:51→20:56)
[2020-09-30] MEDS: Vitamin THERAPEUTIC TAB PO SCH (08:37)
[2020-09-30] MEDS: Nicotine PATCH 21 MG/24 HR PATCH TRANSDERM SCH (08:38)
[2020-10-01] MEDS: Nicotine GUM 4MG FRUIT FLAVOR PO PRN ×6 (06:27→22:10)
[2020-10-01] MEDS: Nicotine PATCH 21 MG/24 HR PATCH TRANSDERM SCH (08:29)
[2020-10-01] MEDS: Vitamin THERAPEUTIC TAB PO SCH (08:30)
[2020-10-01 18:23] LABS: Albumin 3.3 g/dL (3.2-5.2); Albumin/Globulin Ratio 0.8 (1-3); BUN/Creatinine Ratio 35.6 (8-20); Calcium 8.9 mg/dL (8.6-10.3); EGFR African American 136.6 (>60); EGFR Non-African American 112.9 (>60); Globulin 4.1 g/dL (2-4); Potassium 4.2 mmol/L (3.5-5.0); Total Bilirubin 2.6 mg/dL (0.2-1.0); Total Protein 7.4 g/dL (6.4-8.9)
[2020-10-02] MEDS: Nicotine GUM 4MG FRUIT FLAVOR PO PRN ×5 (01:35→19:17)
[2020-10-02] MEDS: Nicotine PATCH 21 MG/24 HR PATCH TRANSDERM SCH (07:44)
[2020-10-02] MEDS: Vitamin THERAPEUTIC TAB PO SCH (08:03)
[2020-10-03] MEDS: Nicotine PATCH 21 MG/24 HR PATCH TRANSDERM SCH (08:20)
[2020-10-03] MEDS: Nicotine GUM 4MG FRUIT FLAVOR PO PRN ×4 (08:20→20:28)
[2020-10-03] MEDS: Vitamin THERAPEUTIC TAB PO SCH (08:37)
[2020-10-03] MEDS: Albuterol HFA INHALER 8 gm MDI INH PRN (17:11)
[2020-10-04] MEDS: Nicotine PATCH 21 MG/24 HR PATCH TRANSDERM SCH (09:06)
[2020-10-04] MEDS: Vitamin THERAPEUTIC TAB PO SCH (09:06)
[2020-10-04] MEDS: Nicotine GUM 4MG FRUIT FLAVOR PO PRN ×4 (09:06→22:17)
[2020-10-05] MEDS: Nicotine GUM 4MG FRUIT FLAVOR PO PRN (07:56)
[2020-10-05] MEDS: Vitamin THERAPEUTIC TAB PO SCH (07:56)
[2020-10-05] MEDS: Nicotine PATCH 21 MG/24 HR PATCH TRANSDERM SCH (07:57)
[2020-10-05 09:47] VITALS: BP 125/86
[2020-10-05 10:05] LABS: Albumin 3.4 g/dL (3.2-5.2); Albumin/Globulin Ratio 0.7 (1-3); Calcium 9.2 mg/dL (8.6-10.3); EGFR African American 165.3 (>60); EGFR Non-African American 136.6 (>60); Globulin 4.7 g/dL (2-4); Potassium 4.2 mmol/L (3.5-5.0); Total Protein 8.1 g/dL (6.4-8.9)
== END 2020-10-05 13:31 | disposition home or self-care (01) | DRG 751 ==
LOC: ED 17:52 → BSU 22:44
PROVIDERS: ADMIT Psychiatry & Neurology Psychiatry; ATTEND Psychiatry & Neurology Psychiatry